=== PATIENT | male | born 2000 | race Caucasian/White ===

== ENCOUNTER 2024-08-25 18:51 | Emergency (ER) | payer BC, SELFPAY ==
[2024-08-25 19:04] VITALS: BP 160/106
[2024-08-25 19:22] LABS: % Basophils 0.3 % (0-2); % Eosinophils 1.1 % (0-6); % Immature Granulocytes 0.5 % (0-0.5); % Lymphocytes 37.9 % (20.5-51.1); % Monocytes 9.4 % (1.7-9.3); % Neutrophils 50.8 % (42.2-75.2); Absolute Eosinophils 0.1 10^3/uL (0-0.7); Absolute Immature Granulocytes 0.1 10^3/uL (0-0.05); Absolute Lymphocytes 4.5 10^3/uL (1.2-3.4); Absolute Monocytes 1.1 10^3/uL (0.1-0.6); Hematocrit 46.3 % (39.0-52.0); Hemoglobin 15.9 g/dL (13.0-18.0); Mean Corp Hgb Conc. 34.3 g/dL (33.0-37.0); Mean Corpuscular Hgb 29.2 pg (27.0-31.0); Mean Platelet Volume 8.3 fL (7.4-10.4); Nucleated Red Blood Cells % 0.2 % (-); Platelet Count 462 10^3/uL (130-400); Red Blood Cell Count 5.45 10^6/uL (4.70-6.10); Red Cell Dist. Width 12.5 % (11.5-14.5); White Blood Cell Count 11.8 10^3/uL (4.8-10.8)
[2024-08-25 19:36] LABS: ALT (SGPT) 54 U/L (0-50); AST (SGOT) 36 U/L (17-59); Albumin 4.4 g/dl (3.5-5.0); Alkaline Phosphatase 66 U/L (38-126); Blood Urea Nitrogen 17 mg/dl (9-20); Calcium 9.3 mg/dl (8.4-10.2); Carbon Dioxide 28 mmol/L (22-30); Chloride 102 mmol/L (98-107); Glucose 112 mg/dl (70-99); Potassium 4.6 mmol/L (3.5-5.1); Sodium 138 mmol/L (135-145); Total Bilirubin 0.4 mg/dl (0.2-1.3); Total Protein 7.2 g/dl (6.3-8.2); eGFR > 60.00
[2024-08-25 19:53] LABS: NT-proBNP < 20.0 pg/ml; Troponin I < 0.012 ng/ml
[2024-08-25 22:36] VITALS: BP 158/97
[2024-08-25 22:51] VITALS: BMI 44.3
[2024-08-25 23:00] VITALS: BP 135/93
[2024-08-26] VITALS: BP 124/70
--- NOTE | 2024-08-26 00:52 | ED.GENMED ---
History of Present Illness
General
Chief Complaint: Pneumonia Symptoms
Time Seen by Provider: 08/25/24 23:43
History of Present Illness
History of Present Illness:
24-year-old male presents to the emergency department for evaluation of intractable cough and blood-tinged mucus over the past 3 weeks. He has had symptoms despite taking a 5-day course of azithromycin about a week and a half ago. Has chest
tightness and easy fatigability with exertion. No leg swelling or rashes.
Past History
Past History
ED Past Medical History: None
ED Past Surgical History: None
Social History
Tobacco: Non-smoker
Alcohol: None
Drug: None
Personal: Single
Living: with family
Employment: Employed
Family History
Family History: Other (Noncontributory)
Review of Systems
Review of Systems
Allergies reviewed?: Yes
All Other Systems: ROS reviewed and negative except as documented in HPI and ROS
Phy Exam
Physical Exam
Physical Exam:
GEN: Well appearing, NAD, WDWN
HEENT: Oral mucosa moist, no scleral icterus
Cardiac: Regular rate and rhythm, no murmurs
Lung: No respiratory distress, no tachypnea, lungs clear to auscultation bilaterally
MSK: No gross deformity or injuries
Skin: Good color, no pallor or jaundice, no rashes
Neuro: AO x3, moves all extremities freely
Psych: Calm, cooperative
Course
Orders/Labs/Results
Orders:
Orders
08/25/24 18:52
Electrocardiogram (*1) Urgent
Reason for Study: Chest Pain
08/25/24 18:53
EKG- Treatment ONCE
08/25/24 19:10
Cardiac Monitoring- Treatment ONCE
IV Insert/Care/Rem.- Treatment PRN
CR Chest - 2 Views Urgent
Comment: current pneumonia
Reason For Exam: respiratory distress
O2 Therapy [RESP] Urgent
Titrate/Wean O2 to maintain O2 sat greater than (%): 93
Special Instructions: TO MAINTAIN CONTINUOUS O2 SATS >/= 93%
Pulse Ox/cont/shift [RESP] Urgent
Quantity: 1
Special Instructions: continuous pulse ox
08/25/24 19:15
Complete Blood Count/With Diff Urgent
Comprehensive Metabolic Panel Urgent
Pro-BNP [NT-proBNP] Urgent
Troponin I Urgent
08/26/24 00:52
Doxycycline [Vibramycin] 100 mg PO NOW STA
Prednisone [Deltasone] 40 mg PO NOW STA
Abnormal Lab Results
08/25/24
19:15
WBC 11.8 H 10^3/uL
(4.8-10.8)
Plt Count 462 H 10^3/uL
(130-400)
Abs Immat Gran (auto) 0.1 H 10^3/uL
(0-0.05)
Absolute Lymphs (auto) 4.5 H 10^3/uL
(1.2-3.4)
Absolute Monos (auto) 1.1 H 10^3/uL
(0.1-0.6)
Monocytes % 9.4 H %
(1.7-9.3)
Glucose 112 H mg/dl
(70-99)
ALT 54 H U/L
(0-50)
08/25/24 19:15
08/25/24 19:15
Vital Signs
Initial and Last Documented VS:
Initial Vital Signs
Temp Pulse Resp BP Pulse Ox
98.6 F 85 20 160/106 98
08/25/24 19:04 08/25/24 19:04 08/25/24 19:04 08/25/24 19:04 08/25/24 19:04
Last Documented Vital Signs
Temp Pulse Resp BP Pulse Ox
98.9 F 83 23 126/83 96
08/25/24 23:10 08/26/24 01:00 08/26/24 01:00 08/26/24 01:00 08/26/24 01:00
MDM/Problems Addressed
MDM/Problems Addressed:
Given the patient's persistent symptoms despite Zithromax and continued hoarse cough with mild leukocytosis we will treat this as a persistent mycoplasma infection with doxycycline. Chest x-ray clear and labs otherwise reassuring
*Critical Care Note
Total Time (30-74mins, 75-104mins- exclusive of procedures): Not Applicable
ED Attending Note
-
Portions of this chart may have been created with voice recognition software.� Occasional wrong word or��sound alike� substitutions may have occurred due to the inherent limitations of voice recognition software.
Discharge Plan
Departure
Patient Disposition: Home (Routine Discharge)
Date of Disposition: 08/26/24
Time of Disposition: 00:53
Patient with high blood pressure during this ER visit?: No
Discharge Problem:
Mycoplasma pneumonia
Instructions: Pneumonia in adults - Discharge instructions
Prescriptions:
New
doxycycline monohydrate 100 mg capsule
100 mg PO BID 5 Days Qty: 9 0RF
prednisone 20 mg tablet
40 mg PO DAILY 4 Days Qty: 8 0RF
Referrals:
NONE,* [Family Provider] -
Interventions
Interventions:
*Risk Screen - Suicide Last Done: 08/25/24 19:04
*General Assessment Last Done: 08/25/24 19:04
*Neglect/Abuse Screening Last Done: 08/25/24 19:04
ED- Fall Risk Assessment Last Done: 08/25/24 19:04
*ED COVID-19 Vaccine History Last Done: 08/25/24 19:04
*Nursing Disposition Last Done: 08/26/24 01:16
ED- Cardiac Assessment Last Done: 08/25/24 23:03
ED- Pulmonary Assessment Last Done: 08/25/24 23:03
Discharge Date and Time
Discharge Date/Time: 08/26/24 01:10
Print Language: [place]
[2024-08-26 01:00] VITALS: BP 126/83
[2024-08-26] MEDS: VIBRAMYCIN 100 MG PO (01:05)
[2024-08-26] MEDS: DELTASONE 40 MG PO (01:05)
== END 2024-08-26 01:10 | disposition home or self-care (01) ==
LOC: EMR 18:51
PROVIDERS: Emergency Medicine; EMERGENCY PHYSICIAN Student in an Organized Health Care Education/Training Program
DX: J15.7 Pneumonia due to Mycoplasma pneumoniae (principal)
CPT/HCPCS: 99283; 71046; 80053; 83880; 84484; 85025; 93005